=== PATIENT | female | born 1990 | race Hispanic/Latino ===

== ENCOUNTER 2017-02-26 20:06 | Emergency (ER) | payer OTHER ==
[2017-02-26 20:34] VITALS: BP 119/74; PULSE 65; RESP 16; TEMP 98.4; O2SAT 97
--- NOTE | 2017-02-26 21:31 | ED PDOC ---
HPI: Headache Time Seen by Provider: 02/26/17 20:34 Chief Complaint (Nursing): Headache Chief Complaint (Provider): Headache History Per: Patient History/Exam Limitations: no limitations Onset/Duration Of Symptoms: Hrs (x1 [employer]) Current Symptoms Are (Timing): Still Present Quality: "Pain" Preceeding Symptoms: None Associated Symptoms: denies: Blurred Vision, Nausea, Vomiting, Other (dizziness) Additional Complaint(s): Gail Gamboa is a 26 year old female, with no past medical history, who presents to the emergency department complaining of a mild frontal headache s/p fall x1 hour prior to arrival. Patient states she slipped and fell down the stairs, hitting the back of her head hard on the last step. She "blacked out" but immediately recognized what had happened. Patient took advil with minimal relief of symptoms. She denies any neck pain, LOC, nausea, vomit, dizziness, blurry vision, or fluid from nose or ears. No further medical complaints. PMD: Alma Rosa Norris Past Medical History Reviewed: Historical Data, Nursing Documentation, Vital Signs Vital Signs: Last Vital Signs Temp 98.4 F 02/26/17 20:29 Pulse 65 02/26/17 20:29 Resp 16 02/26/17 20:29 BP 119/74 02/26/17 20:29 Pulse Ox 97 02/26/17 20:29 - Medical History PMH: No Chronic Diseases - Surgical History Surgical History: No Surg Hx - Family History Family History: States: Unknown Family Hx - Social History Current smoker - smoking cessation education provided: No Alcohol: Social Drugs: Denies - Home Medications Home Medications: Ambulatory Orders Medication Instructions Recorded Cyclobenzaprine [Cyclobenzaprine 10 mg PO TID #20 tab 02/26/17 HCl] Ibuprofen [Motrin] 600 mg PO Q6 #20 tab 02/26/17 - Allergies Allergies/Adverse Reactions: Allergies Allergy/AdvReac Type Severity Reaction Status Date / Time Penicillins Allergy RASH Verified 02/26/17 20:29 Review of Systems ROS Statement: Except As Marked, All Systems Reviewed And Found Negative Eyes: Negative for: Vision Change (blurry vision) Gastrointestinal: Negative for: Nausea, Vomiting Musculoskeletal: Negative for: Neck Pain Neurological: Positive for: Headache (mild frontal). Negative for: Dizziness, Other (LOC) Physical Exam - Reviewed Nursing Documentation Reviewed: Yes Vital Signs Reviewed: Yes - Physical Exam Appears: Positive for: Well, Non-toxic, No Acute Distress Head Exam: Positive for: NORMAL INSPECTION, NORMOCEPHALIC. Negative for: ATRAUMATIC (scalp tenderness. No ecchymosis no edema) Skin: Positive for: Normal Color, Warm, Dry Eye Exam: Positive for: Normal appearance Neck: Positive for: Normal, Painless ROM, Supple Extremity: Positive for: Normal ROM. Negative for: Deformity, Swelling Neurologic/Psych: Positive for: Alert, Oriented - ECG O2 Sat by Pulse Oximetry: 97 (RA) Pulse Ox Interpretation: Normal Medical Decision Making Medical Decision Making: Initial Impression: headache s/p fall Initial Plan: Pt declined analgesics --head w/o contrast [CT] --reevaluation CT IMPRESSION: No acute findings ~ Scribe Attestation: Documented by Ozzy Knox, acting as a scribe for Maria D Bales PA-C. Provider Scribe Attestation: All medical record entries made by the Scribe were at my direction and personally dictated by me. I have reviewed the chart and agree that the record accurately reflects my personal performance of the history, physical exam, medical decision making, and the department course for this patient. I have also personally directed, reviewed, and agree with the discharge instructions and disposition. Disposition - Clinical Impression Clinical Impression: Fall, Concussion - Patient ED Disposition Is Patient to be Admitted: No - Disposition Disposition: Routine/Home Disposition Time: 22:49 Condition: STABLE Prescriptions: Cyclobenzaprine [Cyclobenzaprine HCl] 10 mg PO TID #20 tab Ibuprofen [Motrin] 600 mg PO Q6 #20 tab Instructions: Post Concussion Syndrome (ED) Forms: [facility] ([place]), [facility] ED School/Work Excuse - POA Present On Arrival: None
--- NOTE | 2017-02-27 08:47 | CT ---
PROCEDURE: CT HEAD WITHOUT CONTRAST. HISTORY: fall, loc COMPARISON: None available. TECHNIQUE: Axial computed tomography images were obtained through the head/brain without intravenous contrast. Radiation dose: Total exam DLP = 855.3 mGy-cm. This CT exam was performed using one or more of the following dose reduction techniques: Automated exposure control, adjustment of the mA and/or kV according to patient size, and/or use of iterative reconstruction technique. FINDINGS: HEMORRHAGE: No intracranial hemorrhage. BRAIN: No mass effect or edema. No atrophy or chronic microvascular ischemic changes. VENTRICLES: Unremarkable. No hydrocephalus. CALVARIUM: Unremarkable. PARANASAL SINUSES: Unremarkable as visualized. No significant inflammatory changes. MASTOID AIR CELLS: Unremarkable as visualized. No inflammatory changes. OTHER FINDINGS: None. IMPRESSION: No acute intracranial pathology.
== END 2017-02-26 22:50 | disposition home or self-care (01) ==
LOC: H.ER 21:01
DX: S06.0X0A Concussion without loss of consciousness, initial encounter (principal); W19.XXXA Unspecified fall, initial encounter; Y92.89 Other specified places as the place of occurrence of the external cause; Z88.0 Allergy status to penicillin